=== PATIENT | male | born 2000 | race American Indian/Alaskan Native ===

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

== ENCOUNTER 2020-08-11 15:16 | Emergency (ER) | payer SELFPAY ==
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
[2020-08-11 17:52] VITALS: BP 132/75
== END 2020-08-11 18:04 | disposition home or self-care (01) ==
LOC: ED 15:16
DX: M54.9 Dorsalgia, unspecified (principal); F12.10 Cannabis abuse, uncomplicated; V49.59XA Passenger injured in collision with other motor vehicles in traffic accident, initial encounter; Y93.89 Activity, other specified; Y92.488 Other paved roadways as the place of occurrence of the external cause; Y99.8 Other external cause status
CPT/HCPCS: 99282